=== PATIENT | female | born 1970 | race Caucasian/White ===

== ENCOUNTER 2022-06-07 00:06 | Observation (INO) | payer OTHER ==
[2022-06-07 03:22] VITALS: BMI 25.4
[2022-06-07] MEDS ORDERED: Acetaminophen 650 MG Suppository PR PRN (04:08)
[2022-06-07] MEDS ORDERED: Ondansetron ODT 4 MG TAB PO PRN (04:08)
[2022-06-07] MEDS ORDERED: Acetaminophen 325 MG TAB PO PRN (04:08)
[2022-06-07] MEDS ORDERED: Ondansetron PF 4 MG/2 ML Vial IVP PRN (04:08)
[2022-06-07] MEDS ORDERED: Aspirin Chewable 81 MG TAB PO SCH (06:15)
[2022-06-07 06:56] LABS: Hemoglobin A1c 5.6 % (4.0-6.0)
[2022-06-07 07:17] LABS: Cardiac Risk 4.2 (Less than 4.5)
[2022-06-07] MEDS ORDERED: Aspirin 81 mg Enteric Coated Tablet PO SCH (09:00)
[2022-06-07 11:19] VITALS: BP 102/58; TEMP 97.6
[2022-06-07] MEDS ORDERED: Atorvastatin Calcium 40 MG TAB PO SCH (21:00)
== END 2022-06-07 16:55 | disposition home or self-care (01) ==
LOC: 2SW 00:06
PROVIDERS: ADMIT Hospitalist; ATTEND Hospitalist
DX: G45.9 Transient cerebral ischemic attack, unspecified (principal); E78.5 Hyperlipidemia, unspecified; F17.200 Nicotine dependence, unspecified, uncomplicated; Z20.822 Contact with and (suspected) exposure to COVID-19
CPT/HCPCS: 36415; 70551; 80061; 83036; 93306; 93880; G0378; U0003; U0005